=== PATIENT | male | born 1990 | race African-American/Black ===

== ENCOUNTER 2020-02-02 13:31 | Emergency (ER) | payer SELFPAY ==
[2020-02-02] MEDS ORDERED: Iopamidol-370 76% 500 ML 1 ML ONE (14:15)
[2020-02-02 14:34] LABS: #Eosinphils 0.2 thou/uL (0.0-0.7); #Lymphocytes 2.5 thou/uL (1.20-3.40); #Monocytes 1.2 thou/uL (0.11-0.59); #Neutrophils 7.3 thou/uL (1.40-6.50); %Basophils 0.3 % (0.0-1.0); %Eosinophils 1.5 % (0.0-10.0); %Lymphocytes 22.4 % (21.0-51.0); %Neutrophils 64.8 % (42.0-75.0); Mean Corpuscular HGB CONC 30.6 g/dL (32.0-36.0); Mean Corpuscular Hemoglobin 24.2 pg (27.0-31.0); Mean Corpuscular Volume 79.1 fL (78.0-98.0); Mean Platelet Volume 9.8 fL (7.4-10.4); Platelet Count 194 thou/uL (130-400); RBC Distribution Width 12.8 % (11.5-14.5); Red Blood Cell (RBC) Count 6.21 mill/uL (4.70-6.10); White Blood Cell (WBC) Count 11.3 thou/uL (4.8-10.8)
[2020-02-02 14:53] LABS: ALT (SGPT) 35 U/L (8-55); AST (SGOT) 24 U/L (5-34); Albumin 4.3 g/dL (3.5-5.0); Alkaline Phosphatase 90 U/L (40-110); Anion Gap 12 mmol/L (10-20); BUN (Urea Nitrogen) 12 mg/dL (8.9-20.6); Bilirubin, Total 0.6 mg/dL (0.2-1.2); Calc. Creatinine Clearance 0 mL/min (70-130); Calcium 9.6 mg/dL (7.8-10.44); Carbon Dioxide 28 mmol/L (22-29); Chloride 102 mmol/L (98-107); Estimated GFR-MDRD 75; Globulin 3.4 g/dL (2.4-3.5); Glucose 84 mg/dL (70-105); Lipase 20 U/L (8-78); Potassium 3.7 mmol/L (3.5-5.1); Protein, Total 7.7 g/dL (6.0-8.3); Sodium 138 mmol/L (136-145)
[2020-02-02 16:20] LABS: Bilirubin Negative (Negative); Blood, Urine Negative (Negative); Clarity Clear (Clear); Glucose, Urine (Dipstick) Normal (Negative); Leukocyte Negative Leu/uL (Negative); Nitrite Negative (Negative); Protein, Urine (Dipstick) 20 mg/dL (Neg-Trace)
[2020-02-02] MEDS ORDERED: cefTRIAXone\\ROCEPHIN 1 GM VIAL ONE (16:39)
[2020-02-02] MEDS ORDERED: Ondansetron PF 4 MG/2 ML Vial ONE (16:39)
[2020-02-02] MEDS ORDERED: Morphine 4 MG/ML VIAL ONE ×2 (16:39→18:19)
--- NOTE | 2020-02-02 17:40 | CT ---
CT ABDOMEN AND PELVIS WITH IV CONTRAST 02/02/2020 CLINICAL INFORMATION: Abdominal and bilateral flank pain with symptoms occurring last night. Fever and chills. Possible bug bite near umbilicus. COMPARISON: None. Technique: Multiple contiguous axial CT images are obtained through the abdomen and pelvis with IV contrast. Cor onal reformatted images are provided. FINDINGS: Lower Chest: Minimal atelectasis is present at the right lung base. Lung bases are otherwise clear. Vessels: Abdominal aorta is normal in caliber. Abdomen: Portal vein:Patent Gallbladder: Within normal limits for CT imaging. Liver: within normal limits. Spleen: within normal limits. Pancreas: within normal limits. Adrenals: within normal limits. Kidneys: There is moderate to severe right hydronephrosis including dilatation of the right renal pel vis. The right ureter is normal in caliber. No calculus is seen. 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 No perinephric stranding is seen on the right. There is also suggestion of cortical thinning, and this is likely related to a more long-standing process. The left kidney has a normal CT appearance Bowel: Normal caliber. Appendix: The appendix is visualized and normal in caliber. Peritoneum: No ascites or free air; no fluid collection. Mesentery and Retroperitoneum: No enlarged mesenteric or retroperitoneal lymph nodes. Abdominal Wall: Small fat-containing umbilical hernia is present. There is minimal focal area of skin thickening seen in the left anterolateral abdomen at the level of the umbilicus with underlying inflammatory stranding and subcutaneous edema in the adipose layer of the left anterior abdominal wal l in this region. This could be related to focal area of cellulitis. No fluid collection is seen in this region to suggest an abscess. Pelvis: Reproductive Organs: No pelvic masses. Pelvis within normal limits. Bladder: within normal limits. Bones: No suspicious lytic or sclerotic osseous lesions are identified. Bilateral pars defects are se en at L5 without anterolisthesis. IMPRESSION: 1. Subcutaneous edema and inflammatory stranding in the left anterolateral abdomen wall adipose layer with small focal area of skin thickening. Findings may be related to cellulitis in the correct clinical scenario. No fluid collection is identified in this region to suggest an abscess. 2. 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 There is no perinephric inflammatory stranding present, and this is probably attributable to a more long-standing process. Follow-up urology consultation is recommend ed.
[2020-02-02] MEDS ORDERED: Ketorolac Tromethamine 30 MG/ML VIAL ONE (18:19)
[2020-02-02] MEDS ORDERED: Sulfameth/Trimethoprim DS 800-160mg TAB ONE (18:27)
== END 2020-02-02 19:11 | disposition home or self-care (01) ==
LOC: ERS 13:31
DX: L03.311 Cellulitis of abdominal wall (principal); N13.30 Unspecified hydronephrosis; I10 Essential (primary) hypertension; R11.0 Nausea; J45.909 Unspecified asthma, uncomplicated; F41.9 Anxiety disorder, unspecified; Z79.899 Other long term (current) drug therapy
CPT/HCPCS: 36415; 74177; 80053; 81003; 83605; 83690; 85025; 87086; 87804; 96361; 96365; 96375; 96376; J0696; J1885; J2270; J2405; Q9967

== ENCOUNTER 2020-02-07 19:00 | Emergency (ER) | payer OTHER, SELFPAY ==
--- NOTE | 2020-02-07 19:46 | RAD ---
EXAM: XR Lumbar Spine 2 Or 3 View DATE: 02/07/2020 7:30 PM INDICATION: Fall with back pain COMPARISON: None. FINDING: There are 5 lumbar type vertebra. No acute fracture or subluxation demonstrated. Spinal ali gnment appears within normal limits. SI joints are normal appearing. IMPRESSION: No acute fracture or subluxation demonstrated.
[2020-02-07] MEDS ORDERED: Ketorolac Tromethamine 30 MG/ML VIAL ONE (19:55)
[2020-02-07] MEDS ORDERED: Diazepam 10 MG/2 ML SYRINGE ONE (19:58)
== END 2020-02-07 21:52 | disposition home or self-care (01) ==
LOC: ERS 19:00
DX: M54.5 Low back pain (principal); J45.909 Unspecified asthma, uncomplicated; I10 Essential (primary) hypertension; F41.9 Anxiety disorder, unspecified; Z79.899 Other long term (current) drug therapy; W19.XXXA Unspecified fall, initial encounter
CPT/HCPCS: 72100; 96372; 96374; J1885; J3360